=== PATIENT | male | born 1985 | race Caucasian/White ===

== ENCOUNTER 2016-04-19 18:44 | Emergency (ER) | payer SELFPAY ==
[~2016-04-19] VITALS: Ht 180.3 cm; Wt 95.9 kg
[~2016-04-19 18:44] MED LIST: PRED20 PO; TYLE3 PO; Z.0.NO CURRENT MEDS
[2016-04-19 19:10] VITALS: BP 142/106; PULSE 87; RESP 20; TEMP 98.3; O2SAT 98
--- NOTE | 2016-04-19 19:22 | PD ---
HPI Chief Complaint: Eye Problems/Injury Time Seen by Provider: 19:20 Travel History International Travel<30 days: No Contact w/Intl Traveler<30days: No Traveled to known affect area: No History of Present Illness HPI Patient comes in complaining of foreign body sensation in his left eye that began around 1300 today. Patient states that around 10:00 this morning he was sandblasting and approximately 3 hours later he was sitting talking inside an office when something fell into his eye. Patient states he has tried irrigating his eye multiple times with no relief symptoms. Patient's reports rubbing in multiple times as well. Pain is worse to light makes difficult keep his left eye open. Denies any headache or drainage. PFSH Past Medical History Diminished Hearing: No Reproductive: Yes Immunizations Current: Yes Past Surgical History Thoracic Surgery: Yes (HX 2 RT PNEUMOTHORAX. RT THORACIC SURGERY.) Social History Alcohol Use: Yes (4 DRINKS WEEKLY) Tobacco Use: No Substance Use: Yes (ETOH SOCIAL.DENIES PSA) Allergies-Medications (Allergen,Severity, Reaction): Coded Allergies: No Known Allergies (Verified , 04/19/16) Reported Meds & Prescriptions Reported Meds & Active Scripts Active Erythromycin Opth Oint 5 Mg/Gm Oint 1 Applic RIGHT EYE QID 7 Days Review of Systems Except as stated in HPI: all other systems reviewed are Neg Physical Exam Narrative GENERAL: Well-developed, overly nourished, in no acute distress, and non-ill appearing. SKIN: Warm and dry. HEAD: Atraumatic. Normocephalic. EYES: Pupils equal and round. EOMI. No scleral icterus. No injection or drainage. ENT: No nasal bleeding or discharge. Mucous membranes pink and moist. NECK: Trachea midline. Supple. No nuclear rigidity. RESPIRATORY: No accessory muscle use. No respiratory distress. MUSCULOSKELETAL: No obvious deformities. No clubbing. No cyanosis. No edema. Full range of motion. NEUROLOGICAL: Awake and alert. No obvious cranial nerve deficits. Motor grossly within normal limits. Normal speech. PSYCHIATRIC: Appropriate mood and affect; insight and judgment normal. Data Data Last Documented VS Vital Signs Date Time Temp Pulse Resp B/P Pulse Ox O2 Delivery O2 Flow Rate FiO2 04/19/16 19:10 98.3 87 20 142/106 98 Orders Proparacaine 0.5% Opth Soln (Alcaine 0.5 (04/19/16 19:30) MDM Medical Decision Making Medical Screen Exam Complete: Yes Emergency Medical Condition: Yes Differential Diagnosis Corneal abrasion, corneal ulcer, retained foreign body, other Narrative Course The patient presented with foreign body to eye. The patient underwent Anguiano Lamp exam with stain, as well as lid eversion. The foreign body was removed without incident and patient tolerated this well. Repeat exam revealed no retained foreign body. No history to suspect corneal ulceration as well. There is no evidence of iritis, glaucoma, preseptal cellulitis, periorbital or orbital cellulitis. Will place patient on ophthalmologic antibiotics. This was discussed with the patient. The patient was instructed to follow up with ophthalmology or return here if worsened, increased pain, decreased vision, swelling around the eye or as needed. Ophthalmology referral was given. The patient agreed with plan. Patient in no obvious distress upon re-evaluation. Patient was asked if they wanted to speak to my attending, which the patient did not wish to do at this time. Any questions/concerns in reference to patient diagnosis/condition discussed and clarified prior to patient's discharge. Reinforced sheer importance of close follow up with patient's primary physician or primary care clinic. Instructed patient to return to ED immediately, if symptoms return/ worsen. Pt showed understanding of above instructions. Further instructions and recommendations were detailed in discharge paperwork. Pt ambulated without difficulty out of ED at discharge. Procedures Procedure Narrative Verbal consent was obtained. Affected eye was anesthetized using proparacaine. Fluorescein staining and Wood lamp exam performed with no uptake seen. Negative Osmin sign. No hyphema, hyperemia, or rust ring. Eyelid was everted with small foreign body noted was easily removed using a Q-tip. No tenderness bilateral temporal arteries to palpation. Patient tolerated procedure well. Diagnosis Primary Impression: Foreign body of eyelid, left Referrals: Keri Lopez MD Patient Instructions: Eye Foreign Body (ED), General Instructions Additional Instructions: Follow-up with your primary care physician and/or seed buyer in one to 3 days for reevaluation. Take all medication as prescribed. Return to the emergency department if symptoms get worse. Med/Other Pt SpecificInfo: Prescription(s) given Scripts Erythromycin Opth Oint 5 Mg/Gm Oint1 Applic RIGHT EYE QID 7 Days Ref 0 Prov:Samir Godoy MD 04/19/16 Disposition: 01 DISCHARGE HOME Condition: Stable Bienvenido Hinton Apr 19, 2016 19:22
[2016-04-19] MEDS ORDERED: PROPARACAINE HCL 0.5% OPHT SOLN 15 ML BTL LEFT EYE ONE (19:30)
[2016-04-19] MEDS ORDERED: ERYTOIN10 RIGHT EYE (19:38)
== END 2016-04-19 19:48 | disposition home or self-care (01) ==
LOC: PHEFT 18:44
DX: T15.82XA Foreign body in other and multiple parts of external eye, left eye, initial encounter (principal)
CPT/HCPCS: 99283